=== PATIENT | male | born 1960 | race Hispanic/Latino ===

== ENCOUNTER 2023-10-26 23:41 | Inpatient (IN) | payer OTHER ==
[~2023-10-26] VITALS: Ht 170.2 cm; Wt 60.8 kg
[2023-10-27] MEDS: LACTATED RINGERS 1000ML 1,323 ML IV ONE (00:19)
[2023-10-27] MEDS: VANCOMYCIN KIT 1 GM/250 ML IV.KIT IV ONE (00:19)
[2023-10-27] MEDS: AZTREONAM 1 GM VIAL IVPB SCH (00:19)
[2023-10-27 00:32] LABS: CREATININE 2.4 mg/dL (0.5-1.3); POTASSIUM 4.8 mmol/L (3.5-5.1)
[2023-10-27 00:33] LABS: BASOPHILS # (AUTO) 0.02 K/uL (0.00-0.20); BASOPHILS % (AUTO) 0.3 % (0.0-5.0); EOSINOPHILS # (AUTO) 0.03 K/uL (0.00-0.70); EOSINOPHILS % (AUTO) 0.4 % (0.0-8.0); HEMATOCRIT 28.7 % (42-54); IMMATURE GRANULOCYTE ABSOLUTE 0.04 K/uL (0-1); LYMPHOCYTES # (AUTO) 1.3 K/uL (1.0-4.8); LYMPHOCYTES % (AUTO) 17.3 % (21.0-51.0); MEAN CORPUSCULAR HEMOGLOBIN 29.4 pg (27.0-33.0); MEAN CORPUSCULAR HGB CONC 33.4 g/dL (32.0-36.0); MEAN CORPUSCULAR VOLUME 87.8 fL (79-99); MONOCYTES # (AUTO) 0.5 K/uL (0.1-1.0); MONOCYTES % (AUTO) 5.9 % (3.0-13.0); NEUTROPHILS # (AUTO) 5.8 K/uL (1.8-7.7); NEUTROPHILS % (AUTO) 75.6 % (40.0-77.0); PLATELET COUNT (AUTO) 207 K/uL (130-400); RED BLOOD CELL COUNT(AUTO) 3.27 MIL/uL (4.50-6.20); RED CELL DISTRIBUTION WIDTH 15.8 % (11.0-15.5); WHITE BLOOD COUNT (AUTO) 7.7 K/uL (4.8-10.8)
[2023-10-27 00:41] LABS: RAPID GROUP A STREP negative (NEGATIVE)
[2023-10-27 00:47] LABS: SARS-CoV-2, RNA, NAAT NEGATIVE SARS CoV-2 (NEGATIVE)
[2023-10-27 00:51] LABS: INFLUENZA TYPE A Negative For Type A (NEGATIVE); INFLUENZA TYPE B Negative For Type B (NEGATIVE)
[2023-10-27 00:54] LABS: BAND NEUTROPHILS % (MANUAL) 1 % (0-2); LYMPHOCYTES % (MANUAL) 17 % (22-44); MONOCYTES % (MANUAL) 10 % (2-9); OTHER CELLS,MANUAL % 2 (0-0); SEGMENTED NEUTROPHILS % 70 % (40-70); TOTAL CELLS COUNTED 100
[2023-10-27 00:55] LABS: MAN.DIFF COMMENT-IMPRESSION MANUAL DIFFERENTIAL; PLATELET MORPHOLOGY COMMENT ADEQUATE
[2023-10-27] MEDS: LACTATED RINGERS IV ONE (03:27)
[2023-10-27] MEDS: acetaMINOPHEN 500 MG TABLET PO ONE (04:46)
[2023-10-27] MEDS: LACTATED RINGERS 1000ML 1,000 ML IV SCH (04:54)
[2023-10-27] MEDS ORDERED: acetaMINOPHEN 325 MG TAB PO PRN (05:00)
[2023-10-27] MEDS ORDERED: ondanSETRON 4MG INJ IVP PRN (05:00)
[2023-10-27] MEDS ORDERED: ALBUTEROL 0.083% 2.5 MG/3 ML INH IH PRN (05:00)
[2023-10-27] MEDS ORDERED: acetaMINOPHEN 650 MG SUPPOSITORY RC PRN (05:00)
[2023-10-27 05:25] VITALS: PULSE 85; RESP 18; O2SAT 98
[2023-10-27] MEDS: PANTOPrazole 40 MG TAB DR PO SCH (07:51)
[2023-10-27] MEDS: ASCORBIC ACID 500 MG TAB PO SCH (07:51)
[2023-10-27 09:16] LABS: APPEARANCE,URINE CLEAR (CLEAR); BILIRUBIN,URINE NEGATIVE (NEGATIVE); COLOR,URINE COLORLESS (YELLOW); GLUCOSE, URINE (UA) NEGATIVE (NEGATIVE); KETONES,URINE NEGATIVE (NEGATIVE); LEUKOCYTE ESTERASE ,URINE NEGATIVE Leu/uL (NEGATIVE); NITRATE,URINE NEGATIVE (NEGATIVE); OCCULT BLOOD,URINE SMALL (NEGATIVE); PROTEIN,URINE 200 mg/dL (NEGATIVE); UROBILINOGEN,URINE 0.2 mg/dL (0.2-1.0)
[2023-10-27 09:17] LABS: ADD UA MICROSCOPIC YES
[2023-10-27 09:19] LABS: BACTERIA,URINE RARE /HPF (None Seen); RBC,URINE 0-1 /HPF (0-1); WBC,URINE 0-1 /HPF (0-1)
[2023-10-27] MEDS: HEParin 5,000 UNIT VIAL SQ SCH (09:50)
[2023-10-27] MEDS ORDERED: AMLO-258 PO (14:16)
[2023-10-27] MEDS ORDERED: ATOR40TA69 PO (14:16)
[2023-10-27] MEDS ORDERED: FERR-82 PO (14:16)
[2023-10-27] MEDS ORDERED: OMEP20CA12 PO (14:16)
[2023-10-27] MEDS ORDERED: TICA90TA PO (14:16)
[2023-10-27] MEDS ORDERED: LISI10TA24 PO (14:16)
[2023-10-27] MEDS ORDERED: FOLI1 PO (14:16)
[2023-10-27] MEDS ORDERED: AEC81 PO (14:16)
[2023-10-27] MEDS ORDERED: OMEG-53 PO (14:16)
[2023-10-27] MEDS ORDERED: METF-444 PO (14:16)
[2023-10-27] MEDS ORDERED: GLIP2.5T2 PO (14:16)
[2023-10-27] MEDS: LAbetaLOL 20MG SYG IV PRN (14:55)
[2023-10-27 18:25] VITALS: O2SAT 97
[2023-10-27 19:15] VITALS: O2SAT 97
[2023-10-27 20:00] VITALS: BP 176/82; PULSE 82; RESP 20; TEMP 103
[2023-10-27 20:44] VITALS: PULSE 82; RESP 18; O2SAT 97
[2023-10-27] MEDS ORDERED: TICAGrelor 90 MG TABLET PO SCH (21:00)
[2023-10-27] MEDS: acetaMINOPHEN 325 MG TAB PO PRN (21:15)
[2023-10-27] MEDS: atorVAStatin 40 MG TABLET PO SCH (21:16)
[2023-10-27] MEDS: hydrALAZine 20MG/ML VIAL IV PRN (21:17)
[2023-10-27] MEDS ORDERED: ibuPROFEN 200 MG TAB PO PRN (23:00)
[2023-10-28] VITALS (12 sets, daily range): BP systolic 134–166; BP diastolic 54–86; PULSE 64–89; RESP 17–22; TEMP 98.1–102.8; O2SAT 99–100
[2023-10-28 05:53] LABS: HEMATOCRIT 23.1 % (42-54); MEAN CORPUSCULAR HEMOGLOBIN 29.5 pg (27.0-33.0); MEAN CORPUSCULAR HGB CONC 34.2 g/dL (32.0-36.0); MEAN CORPUSCULAR VOLUME 86.2 fL (79-99); RED BLOOD CELL COUNT(AUTO) 2.68 MIL/uL (4.50-6.20); RED CELL DISTRIBUTION WIDTH 15.2 % (11.0-15.5); WHITE BLOOD COUNT (AUTO) 8.3 K/uL (4.8-10.8)
[2023-10-28 06:42] LABS: BILIRUBIN,DIRECT 0.2 mg/dL (0.0-0.3); BILIRUBIN,TOTAL 0.7 mg/dL (0.2-1.0); MAGNESIUM 1.2 mg/dL (1.80-2.40); THYROID STIMULATING HORMONE 1.55 uIU/mL (0.36-3.74); TOTAL PROTEIN, SERUM 5.8 g/dL (6.0-8.3)
[2023-10-28] MEDS ORDERED: PoTASSium chloRIDE 20MEQ/100ML 100 ML IV PRN (08:00)
[2023-10-28] MEDS ORDERED: DOXYCYCLINE 100MG+NS 250ML 250 ML IV SCH (08:00)
[2023-10-28] MEDS ORDERED: PoTASSium chl 10% ELIXIR 20MEQ 20 MEQ/15 ML UDCUP PO PRN (08:00)
[2023-10-28] MEDS: MAGNESIUM 2GM PREMIX 50ML 50 ML IV PRN (08:30)
[2023-10-28] MEDS: ASPIRIN 81 MG EC TAB PO SCH (08:31)
[2023-10-28] MEDS: FOLic ACID 1 MG TABLET PO SCH (08:31)
[2023-10-28] MEDS: LISINOPRIL 10 MG TABLET PO SCH (08:31)
[2023-10-28] MEDS: amLODIPine 5 MG TAB PO SCH (08:31)
[2023-10-28 08:39] LABS: ALBUMIN 3.6 g/dL (3.5-5.0); BILIRUBIN,TOTAL 0.9 mg/dL (0.2-1.0); CREATININE 1.9 mg/dL (0.5-1.3); POTASSIUM 4.1 mmol/L (3.5-5.1)
[2023-10-28] MEDS ORDERED: FISH OIL 1000 MG/CAP PO SCH (09:00)
[2023-10-28 09:37] LABS: HIV 1&2 ANTIBODY Non-Reactive (Negative); HIV-1 p24 Antigen Non-Reactive (Negative)
[2023-10-28 20:33] LABS: AMPHET/METH SCREEN,URINE NEGATIVE (NEGATIVE); BARBITURATE SCREEN, URINE NEGATIVE (NEGATIVE); BENZODIAZEPINES SCREEN,URINE NEGATIVE (NEGATIVE); CANNABINOID SCREEN,URINE NEGATIVE (NEGATIVE); COCAINE SCREEN,URINE POSITIVE (NEGATIVE); OPIATE SCREEN,URINE NEGATIVE (NEGATIVE); PHENCYCLIDINE SCREEN,URINE NEGATIVE (NEGATIVE)
[2023-10-29] VITALS (10 sets, daily range): BP systolic 147–164; BP diastolic 69–83; PULSE 69–87; RESP 17–19; TEMP 98.1–102.5; O2SAT 92–99
[2023-10-29 05:17] LABS: HEMATOCRIT 25.1 % (42-54); MEAN CORPUSCULAR HEMOGLOBIN 29.9 pg (27.0-33.0); MEAN CORPUSCULAR HGB CONC 33.9 g/dL (32.0-36.0); MEAN CORPUSCULAR VOLUME 88.4 fL (79-99); RED BLOOD CELL COUNT(AUTO) 2.84 MIL/uL (4.50-6.20); WHITE BLOOD COUNT (AUTO) 8.1 K/uL (4.8-10.8)
[2023-10-29] MEDS: FISH OIL 1000 MG/CAP PO SCH (08:23)
[2023-10-29] MEDS: HYDROcodone/APAP 5/325 1 TAB TABLET PO PRN (20:18)
[2023-10-30] VITALS (9 sets, daily range): BP systolic 121–155; BP diastolic 37–76; PULSE 62–68; RESP 16–18; TEMP 97.6–99.6; O2SAT 96–97
[2023-10-30 05:50] LABS: HEMATOCRIT 21.8 % (42-54); MEAN CORPUSCULAR HEMOGLOBIN 29.5 pg (27.0-33.0); MEAN CORPUSCULAR HGB CONC 33.9 g/dL (32.0-36.0); MEAN CORPUSCULAR VOLUME 86.9 fL (79-99); RED BLOOD CELL COUNT(AUTO) 2.51 MIL/uL (4.50-6.20); RED CELL DISTRIBUTION WIDTH 15.1 % (11.0-15.5); WHITE BLOOD COUNT (AUTO) 6.2 K/uL (4.8-10.8)
[2023-10-30 06:15] LABS: ALBUMIN 2.6 g/dL (3.5-5.0); BILIRUBIN,TOTAL 0.5 mg/dL (0.2-1.0); CREATININE 1.7 mg/dL (0.5-1.3); MAGNESIUM 1.6 mg/dL (1.80-2.40); POTASSIUM 3.1 mmol/L (3.5-5.1); TOTAL PROTEIN, SERUM 5.7 g/dL (6.0-8.3)
[2023-10-30] MEDS: PoTASSium chloRIDE 20MEQ ER 20 MEQ ERTAB PO PRN (06:31)
[2023-10-31] VITALS (7 sets, daily range): BP systolic 134–151; BP diastolic 65–75; PULSE 58–63; RESP 17–18; TEMP 97.3–99.1; O2SAT 99
[2023-10-31 04:35] LABS: MEAN CORPUSCULAR HEMOGLOBIN 30.5 pg (27.0-33.0); MEAN CORPUSCULAR HGB CONC 33.7 g/dL (32.0-36.0); MEAN CORPUSCULAR VOLUME 90.6 fL (79-99); RED BLOOD CELL COUNT(AUTO) 2.23 MIL/uL (4.50-6.20); RED CELL DISTRIBUTION WIDTH 15.3 % (11.0-15.5); WHITE BLOOD COUNT (AUTO) 5.5 K/uL (4.8-10.8)
[2023-10-31 04:52] LABS: CREATININE 1.9 mg/dL (0.5-1.3); POTASSIUM 3.9 mmol/L (3.5-5.1)
[2023-10-31 05:04] LABS: HEMATOCRIT 20.2 % (42-54)
[2023-10-31 05:32] LABS: HEMOGLOBIN A1C 6.1 % (4.0-6.0)
[2023-10-31 06:50] LABS: HEMATOCRIT 22.3 % (42-54)
[2023-11-01 04:00] VITALS: BP 161/68; PULSE 60; RESP 17; TEMP 97.4
[2023-11-01 06:06] LABS: HEMATOCRIT 21.8 % (42-54); MEAN CORPUSCULAR HEMOGLOBIN 29.4 pg (27.0-33.0); MEAN CORPUSCULAR HGB CONC 33.5 g/dL (32.0-36.0); MEAN CORPUSCULAR VOLUME 87.9 fL (79-99); RED BLOOD CELL COUNT(AUTO) 2.48 MIL/uL (4.50-6.20); RED CELL DISTRIBUTION WIDTH 14.9 % (11.0-15.5); WHITE BLOOD COUNT (AUTO) 5.1 K/uL (4.8-10.8)
[2023-11-01 06:53] LABS: ALBUMIN 2.5 g/dL (3.5-5.0); BILIRUBIN,TOTAL 0.3 mg/dL (0.2-1.0); CREATININE 1.8 mg/dL (0.5-1.3); MAGNESIUM 1.7 mg/dL (1.80-2.40); POTASSIUM 3.7 mmol/L (3.5-5.1); TOTAL PROTEIN, SERUM 5.7 g/dL (6.0-8.3)
[2023-11-01 08:00] VITALS: BP 139/64; PULSE 61; RESP 18; TEMP 98.6
[2023-11-01 11:26] VITALS: O2SAT 99
[2023-11-01 12:46] VITALS: BP 142/60; PULSE 60; RESP 19; TEMP 98.7
[2023-11-01 16:00] VITALS: BP 145/68; PULSE 60; RESP 16; TEMP 97.8
[2023-11-01] MEDS: INSULIN humuLIN R 100 UNIT/ML 3ML SQ SCH (16:50)
[2023-11-01 20:00] VITALS: BP 142/70; PULSE 61; RESP 17; TEMP 98.6; O2SAT 98
[2023-11-02] VITALS: BP 156/72; PULSE 62; RESP 17; TEMP 97.4
[2023-11-02 04:00] VITALS: BP 143/73; PULSE 56; RESP 17; TEMP 98.1
[2023-11-02 08:00] VITALS: BP 173/75; PULSE 58; RESP 18; TEMP 97.8
[2023-11-02] MEDS: THIAMINE HCL 100 MG/ML 2ML VIAL IVP SCH (08:45)
[2023-11-02 11:56] VITALS: BP 153/75; PULSE 62; RESP 18; TEMP 97.9
[2023-11-02 12:01] LABS: HEMATOCRIT 23.8 % (42-54); MEAN CORPUSCULAR HEMOGLOBIN 30.3 pg (27.0-33.0); MEAN CORPUSCULAR HGB CONC 34.9 g/dL (32.0-36.0); MEAN CORPUSCULAR VOLUME 86.9 fL (79-99); RED BLOOD CELL COUNT(AUTO) 2.74 MIL/uL (4.50-6.20); WHITE BLOOD COUNT (AUTO) 6.4 K/uL (4.8-10.8)
[2023-11-02 12:14] LABS: CREATININE 1.5 mg/dL (0.5-1.3)
[2023-11-02 14:11] VITALS: O2SAT 58
[2023-11-02 16:00] VITALS: BP 143/50; PULSE 59; RESP 18; TEMP 97.8
[2023-11-02 19:11] LABS: B.BURGOR (LYME) IGG WB INTERP Negative (.); LYME IGG WB P18 AB Absent (.); LYME IGG WB P28 AB Absent (.); LYME IGG WB P30 AB Absent (.); LYME IGG WB P39 AB Absent (.); LYME IGG WB P41 AB Present (.); LYME IGG WB P45 AB Present (.); LYME IGG WB P58 AB Absent (.); LYME IGG WB P66 AB Absent (.); LYME IGG WB P93 AB Absent (.); LYME IGM-WB INTERP Negative (.); LYME IGM-WB P23 AB Present (.); LYME IGM-WB P39 AB Absent (.); LYME IGM-WB P41 AB Absent (.)
[2023-11-03 11:34] LABS: WEST NILE VIRUS IGG Negative (Negative); WEST NILE VIRUS IGM Positive (Negative)
[2023-11-04 02:09] LABS: DENGUE IGG ANTIBODY 1.21 ISR (<1.65); DENGUE IGM ANTIBODY 1.53 ISR (<1.65)
== END 2023-11-02 18:45 | disposition home or self-care (01) | DRG 682 ==
LOC: EDH 23:41 → EDHIP 10-27 04:38 → OBSVTOIN 10-27 04:38 → 3BH 10-27 18:15
PROVIDERS: ADMIT Internal Medicine Critical Care Medicine; ATTEND Internal Medicine Critical Care Medicine
DX: N17.9 Acute kidney failure, unspecified (principal); G93.41 Metabolic encephalopathy; R65.10 Systemic inflammatory response syndrome (SIRS) of non-infectious origin without acute organ dysfunction; C18.9 Malignant neoplasm of colon, unspecified; D63.1 Anemia in chronic kidney disease; E86.0 Dehydration; N18.30 Chronic kidney disease, stage 3 unspecified; E11.22 Type 2 diabetes mellitus with diabetic chronic kidney disease; I12.9 Hypertensive chronic kidney disease with stage 1 through stage 4 chronic kidney disease, or unspecified chronic kidney disease; Z20.822 Contact with and (suspected) exposure to COVID-19; E78.00 Pure hypercholesterolemia, unspecified; I35.0 Nonrheumatic aortic (valve) stenosis; F14.10 Cocaine abuse, uncomplicated; Z83.3 Family history of diabetes mellitus; Z85.038 Personal history of other malignant neoplasm of large intestine; Z86.73 Personal history of transient ischemic attack (TIA), and cerebral infarction without residual deficits
CPT/HCPCS: 36415; 71045; 71250; 74176; 78580; 80048; 80053; 80076; 80305; 81001; 82550; 82948; 83036; 83605; 83735; 83880; 84145; 84443; 84484; 85014; 85018; 85025; 85027; 85378; 85651; 86140; 86617; 86644; 86645; 86665; 86701; 86757; 86788; 86789; 87040; 87086; 87390; 87420; 87635; 87804; 87880; 93005; 93306; 93970; 96365; A9540; G0378; J0360; J1644; J1815; J3370; J3411; J3475; J3490; J7120; 87496; A4600